=== PATIENT | male | born 1985 | race Caucasian/White ===

== ENCOUNTER 2020-05-05 12:02 | Emergency (ER) | payer OTHER ==
[2020-05-05] MEDS ORDERED: IBUPROFEN600 MG PO (13:41)
== END 2020-05-05 13:47 | disposition home or self-care (01) ==
LOC: ER1 12:02
DX: M79.652 Pain in left thigh (principal)
CPT/HCPCS: 93971; 99283

== ENCOUNTER 2020-07-03 09:07 | Emergency (ER) | payer OTHER ==
[~2020-07-03 09:07] MED LIST: IBUPROFEN600 MG PO
[2020-07-03] MEDS ORDERED: PREDNISONE20 MG PO (09:42)
== END 2020-07-03 10:43 | disposition home or self-care (01) ==
LOC: ER1 09:07
DX: M54.32 Sciatica, left side (principal)
CPT/HCPCS: 96372; 99283; J2930